=== PATIENT | female | born 1960 | race Caucasian/White ===

== ENCOUNTER 2019-02-09 20:12 | Emergency (ER) | payer BC, OTHER ==
--- NOTE | 2019-02-09 20:30 | ED.PDOC ---
General ED Provider: Dr. SARAH BETH KIM Chief Complaint: Fever Stated Complaint: Patient is a 58 year old female who comes to the Er with fever for the past 5 days. She was taking care of her mother who had pneumonia. She states has cough productive of green sputum with pain with cough. Also complain of diarrhea and vomiting prior to arrival. Time Seen by Physician: 20:30 Mode of Arrival: Walk-In Information Source: Patient Nursing and Triage Documentation Reviewed and Agree: Yes Does patient meet sepsis criteria?: Yes If yes, has appropriate treatment been initiated?: Yes (IV fluids ) System Inflammatory Response Syndrome: Pulse >90 BPM, Resp >20/Minute Sepsis Protocol: For patient's 13 years and over: Temp is 96.8 and below OR 101 and greater Pulse >90 BPM Resp >20/minute Acutely Altered Mental Status Are patient's symptoms suggestive of a new infection, such as: -Pneumonia -Skin, Soft Tissue -Endocarditis -UTI -Bone, Joint Infection -Implantable Device -Acute Abdominal Infection -Wound Infection -Meningitis -Blood Stream Catheter Infection -Unknown Miscellaneous Complaint Exam - Febrile Illness/Adult Complaint/Exam Onset/Duration: 1 week Symptoms Are: Still present Timing: Constant Highest Temperature Recorded: unknown did not have a Thermometer Initial Severity: Mild Current Severity: Moderate Aggravating: Reports: None Associated Signs and Symptoms: Reports: Short of air, Cough Pseudomonas Risk Factors: Reports: None Serious Bacterial Infection Risk Factors: Reports: Ill contact Current Antibiotic Use: No Review of Systems - Review Of Systems Constitutional: Reports: No symptoms Eyes: Reports: No symptoms Ears, Nose, Mouth, Throat: Reports: No symptoms Respiratory: Reports: Cough, Short of air Cardiac: Reports: Chest pain (with cough only ) GI: Reports: No symptoms : Reports: No symptoms Musculoskeletal: Reports: No symptoms Skin: Reports: No symptoms Neurological: Reports: Anxiety Endocrine: Reports: No symptoms Hematologic/Lymphatic: Reports: No symptoms All Other Systems: Reviewed and Negative Past Medical History - Past Medical History Endocrine: Reports: Hypothyroid Cardiovascular: Reports: NM, Hypertension Respiratory: Reports: None Hematological: Reports: None Gastrointestinal: Reports: GERD Genitourinary: Reports: Kidney stones Neuro/Psych: Reports: TIA Musculoskeletal: Reports: None Cancer: Reports: None Last Menstrual Period: UNKNOWN - Surgical History General Surgical History: Reports: , Other (renal stone removal , Eye surgery to correct crossed eyes) - Family History Family History: Reports: Other (pneumonia ) - Social History Smoking Status: Former smoker Hx Substance Use: No Alcohol Screening: Occasionally - Immunizations Tetanus Shot up to Date: (UNKNOWN) Physical Exam - Physical Exam Appearance: Ill-appearing Ill-appearing: Moderate Eyes: MARCIA, EOMI, Conjunctiva clear ENT: Ears normal, Nose normal, Oropharynx normal Respiratory: Airway patent, Rhonchi (mostly on the right ) Cardiovascular: RRR, Pulses normal, No rub, No murmur GI/: Soft, Nontender, No masses, Bowel sounds normal, No Organomegaly Musculoskeletal: Normal strength, ROM intact, No edema, No calf tenderness Skin: Warm, Dry, Normal color Neurological: Sensation intact, Motor intact, Reflexes intact, Cranial nerves intact, Alert, Oriented Psychiatric: Affect appropriate, Mood appropriate Interpretation - Radiology Interpretation Radiology Interpretation By: Radiologist Radiology Results: Positive Exam Interpreted: Portable CXR (Right lower lobe ) - Industrial Hygiene Technician Rate: Tachy Rhythm: Sinus - EKG Interpretation Time of EKG #1: 01:06 Rate: Tachy Rhythm: Sinus Ectopy: None [place]: NL ST Segment: Normal Interpretation: Sinus Tachycardia Re-Evaluation - Re-Evaluation Time of Re-Evaluation: 23:39 Status: Improved Vital Signs Stable: Yes (Temp 100) Appearance: NAD Lungs: Other (Rhonchi on the right base.) Physician Notification - Case Discussed Physician Notified: DR Archibald Time of Notification: 00:35 (patient is too sick for [facility] may need an agency service representative not available here) Physician Notified: DR. PARKER Time of Notification: 00:50 (It seems patient is stable you can can take care of him there. if uncomfortable you may sent them to [facility] but it is possible we will file an EMTALA against your hospital. ) Follow-up With: Dragan called back by RN and he stated that if they can accept the transfer Critical Care Note - Critical Care Note Total Time (mins): 45 Course - Course Hematology/Chemistry: 02/09/19 20:55 02/09/19 20:55 Orders, Labs, Meds: Lab Review 02/09/19 02/09/19 02/09/19 20:50 20:55 20:55 WBC 13.13 H RBC 4.23 Hgb 12.7 Hct 37.8 MCV 89.4 MCH 30.0 MCHC 33.6 RDW Coeff of Josh 12.9 Plt Count 277 Immature Gran % (Auto) 0.4 Neut % (Auto) 77.6 Lymph % (Auto) 11.8 [place] % (Auto) 9.6 Eos % (Auto) 0.1 Baso % (Auto) 0.5 Immature Gran # (Auto) 0.1 Neut # (Auto) 10.2 H Lymph # (Auto) 1.6 [place] # (Auto) 1.3 Eos # (Auto) 0.0 Baso # (Auto) 0.1 PT 10.2 INR 1.02 Puncture Site O2 Saturation ABG pH ABG pCO2 ABG pO2 ABG HCO3 ABG Total CO2 ABG Base Excess [place] Test FiO2 % Sodium Potassium Chloride Carbon Dioxide Anion Gap BUN Creatinine Estimated GFR (MDRD) BUN/Creatinine Ratio Glucose Lactic Acid Calcium Total Bilirubin AST ALT Alkaline Phosphatase Total Creatine Kinase CK-MB (CK-2) CK-MB (CK-2) % Troponin I Total Protein Albumin Globulin Albumin/Globulin Ratio Procalcitonin Urine Color Yellow Urine Clarity Cloudy Urine pH 6.0 Ur Specific [place] 1.025 Urine Protein 2+ Urine Glucose (UA) Negative Urine Ketones Trace Urine Blood 3+ Urine Nitrite Negative Urine Bilirubin 2+ Urine Urobilinogen 4.0 Ur Leukocyte Esterase Trace Urine Microscopic RBC 30-50 Urine Microscopic WBC 2-5 Ur Squamous Epith Cells 2-5 Urine Bacteria Trace 02/09/19 02/09/19 02/09/19 20:55 20:55 20:55 WBC RBC Hgb Hct MCV MCH MCHC RDW Coeff of Josh Plt Count Immature Gran % (Auto) Neut % (Auto) Lymph % (Auto) [place] % (Auto) Eos % (Auto) Baso % (Auto) Immature Gran # (Auto) Neut # (Auto) Lymph # (Auto) [place] # (Auto) Eos # (Auto) Baso # (Auto) PT INR Puncture Site O2 Saturation ABG pH ABG pCO2 ABG pO2 ABG HCO3 ABG Total CO2 ABG Base Excess Seferino Test FiO2 % Sodium 141.2 Potassium 2.83 L Chloride 105.2 Carbon Dioxide 21.8 L Anion Gap 17.03 BUN 10.6 Creatinine 1.06 Estimated GFR (MDRD) 53.00 BUN/Creatinine Ratio 10.00 Glucose 131.0 H Lactic Acid 1.55 Calcium 9.80 Total Bilirubin 0.84 AST 41.5 H ALT 33.0 Alkaline Phosphatase 130.8 Total Creatine Kinase CK-MB (CK-2) CK-MB (CK-2) % Troponin I Total Protein 8.21 H Albumin 4.38 Globulin 3.83 Albumin/Globulin Ratio 1.14 Procalcitonin 0.30 Urine Color Urine Clarity Urine pH Ur Specific [place] Urine Protein Urine Glucose (UA) Urine Ketones Urine Blood Urine Nitrite Urine Bilirubin Urine Urobilinogen Ur Leukocyte Esterase Urine Microscopic RBC Urine Microscopic WBC Ur Squamous Epith Cells Urine Bacteria 02/09/19 02/09/19 20:55 20:55 WBC RBC Hgb Hct MCV MCH MCHC RDW Coeff of Josh Plt Count Immature Gran % (Auto) Neut % (Auto) Lymph % (Auto) [place] % (Auto) Eos % (Auto) Baso % (Auto) Immature Gran # (Auto) Neut # (Auto) Lymph # (Auto) [place] # (Auto) Eos # (Auto) Baso # (Auto) PT INR Puncture Site [place] O2 Saturation 94.0 L ABG pH 7.438 ABG pCO2 24.3 L ABG pO2 67.0 L ABG HCO3 16.4 L ABG Total CO2 17 L ABG Base Excess -8 L S[place]ino Test + FiO2 % 21.0 Sodium Potassium Chloride Carbon Dioxide Anion Gap BUN Creatinine Estimated GFR (MDRD) BUN/Creatinine Ratio Glucose Lactic Acid Calcium Total Bilirubin AST ALT Alkaline Phosphatase Total Creatine Kinase 593.5 H CK-MB (CK-2) 0.911 CK-MB (CK-2) % 0.1500 Troponin I < 0.012 Total Protein Albumin Globulin Albumin/Globulin Ratio Procalcitonin Urine Color Urine Clarity Urine pH Ur Specific [place] Urine Protein Urine Glucose (UA) Urine Ketones Urine Blood Urine Nitrite Urine Bilirubin Urine Urobilinogen Ur Leukocyte Esterase Urine Microscopic RBC Urine Microscopic WBC Ur Squamous Epith Cells Urine Bacteria Orders Category Date Time Status ABG DRAW REQUEST Routine CARDIO 02/09/19 20:56 Completed EKG-(ED ONLY) Stat CARDIO 02/09/19 23:21 Completed NEBULIZER TREATMENT Stat CARDIO 02/09/19 20:56 Completed ED APPLY O2 .ONCE EMERGENCY 02/09/19 20:28 Active ED MID LEVEL NET DEVELOPER APPLIED .ONCE EMERGENCY 02/09/19 20:28 Active ED IV/MEDIPORT/POWERPORT .ONCE EMERGENCY 02/09/19 20:58 Active ED VITAL SIGNS Q1HR EMERGENCY 02/09/19 20:28 Active IV [ED IV/MEDIPORT/POWERPORT] .ONCE EMERGENCY 02/09/19 21:12 Active ABG Stat LAB 02/09/19 20:55 Completed BLOOD CULTURE Stat LAB 02/09/19 21:05 Received CBC W/ AUTO DIFF Stat LAB 02/09/19 20:55 Completed COMPREHENSIVE METABOLIC PANEL Stat LAB 02/09/19 20:55 Completed CPK [CREATINE KINASE] Stat LAB 02/09/19 20:55 Completed LACTIC ACID Stat LAB 02/09/19 20:55 Completed PROCALCITONIN Stat LAB 02/09/19 20:55 Completed PT WITH INR Stat LAB 02/09/19 20:55 Completed TROPONIN I Stat LAB 02/09/19 20:55 Completed URINALYSIS C & S IF INDICATED Stat LAB 02/09/19 20:50 Completed 0.9 % Sodium Chloride [Saline Flush] MEDS 02/09/19 20:58 Ordered 1 syr IVF PRN PRN 0.9 % Sodium Chloride [Saline Flush] MEDS 02/09/19 21:12 Ordered 1 syr IVF PRN PRN Acetaminophen [Tylenol] MEDS 02/09/19 20:58 Discontinued 1,000 mg PO ONCE STA Azithromycin Inj [Zithromax] 500 mg MEDS 02/09/19 21:11 Discontinued 0.9 % Sodium Chloride [Sodium Chloride] 250 ml IV ONCE Benzonatate [Tessalon Perles] MEDS 02/09/19 21:54 Discontinued 100 mg PO ONCE STA Ceftriaxone/D5w 1 gm Premix [Rocephin 1 gm Premix] 1 gm MEDS 02/09/19 21:11 Discontinued Premix 50 ml D5w 1 bag IV ONCE Ceftriaxone/D5w 1 gm Premix [Rocephin 1 gm Premix] 50 MEDS 02/09/19 21:18 Discontinued ml IV .STK-MED Ipratropium/Albuterol Neb [Duoneb] MEDS 02/09/19 20:56 Discontinued 1 vial NEB ONCE STA Potassium Chloride [K-Dur] MEDS 02/09/19 21:55 Discontinued 40 meq PO ONCE STA Ringers Lactated Solution [Lactated Ringers] 3,000 ml MEDS 02/09/19 20:28 Discontinued IV BOLUS CHEST, 1V AP ONLY Stat RADS 02/09/19 20:28 Completed Medications Generic Name Dose Route Start Last Admin Trade Name Freq PRN Reason Stop Dose Admin Sodium Chloride 1 syr 02/09/19 20:58 02/09/19 22:45 Saline Flush IVF 1 syr PRN PRN Administration To flush IV Sodium Chloride 1 syr 02/09/19 21:12 Saline Flush IVF PRN PRN To flush IV Discontinued Medications Generic Name Dose Route Start Last Admin Trade Name Freq PRN Reason Stop Dose Admin Acetaminophen 1,000 mg 02/09/19 20:58 02/09/19 21:05 Tylenol PO 02/09/19 20:59 1,000 mg ONCE STA Administration Albuterol/Ipratropium 1 vial 02/09/19 20:56 02/09/19 21:30 Duoneb NEB 02/09/19 20:57 1 vial ONCE STA Administration Benzonatate 100 mg 02/09/19 21:54 02/09/19 22:40 Tessalon Perles PO 02/09/19 21:55 100 mg ONCE STA Administration Lactated Ringer's 3,000 mls @ 1,000 mls/hr 02/09/19 20:28 02/09/19 21:04 Lactated Ringers IV 02/09/19 23:27 1,000 mls/hr BOLUS STA Administration CEFTRIAXONE/D5W 1 GM PREMIX 1 50 mls @ 75 mls/hr 02/09/19 21:11 02/09/19 21: 20 gm/ Dextrose IV 02/09/19 21:50 75 mls/hr ONCE STA Administration Azithromycin 500 mg/ Sodium 250 mls @ 125 mls/hr 02/09/19 21:11 02/09/19 22: 42 Chloride IV 02/09/19 23:10 125 mls/hr ONCE STA Administration Potassium Chloride 40 meq 02/09/19 21:55 02/09/19 22:41 K-Dur PO 02/09/19 21:56 40 meq ONCE STA Administration Vital Signs: Temp Pulse Resp BP Pulse Ox 02/09/19 23:11 100 F H 107 H 30 H 95 02/09/19 22:30 127/99 H 02/09/19 20:13 104.4 F H 130 H 36 H 164/101 H 90 L Departure - Departure Time of Disposition: 01:00 Disposition: TSF SHORT-TRM HOSP Discharge Problem: Right lower lobe consolidation, Sepsis due to pneumonia, Hypokalemia Condition: Critical Pt referred to PMD for follow-up: Yes IPMP verified?: No Allergies/Adverse Reactions: Allergies No Known Drug Allergies Adverse Reaction (Verified 02/09/19 20:24) Home Medications: Ambulatory Orders Aspirin [Aspirin EC] 81 mg PO DAILY 02/09/19 Multivitamin [Multivitamin Tablet] 1 tab PO DAILY 02/09/19 Paroxetine HCl [Paxil] 10 mg PO DAILY 02/09/19 Simvastatin [Zocor] 20 mg PO DAILY 02/09/19
[2019-02-09 20:37] VITALS: BMI 31.2
[2019-02-09] MEDS ORDERED: DUONEB NEB STA (20:56)
--- NOTE | 2019-02-09 20:57 | DI ---
EXAM: Single view of the chest. History: Cough. Findings: Heart size is normal. Right lower lobe consolidation. No pleural fluid and no pneumothor ax. No acute osseous abnormalities. Impression: Right lower lobe pneumonia. Recommend follow-up chest radiograph to assure resolution.
[2019-02-09] MEDS ORDERED: TYLENOL PO STA (20:58)
[2019-02-09] MEDS ORDERED: LACTATED RINGERS 1,000 ML IV STA ×2 (21:00→22:45)
[2019-02-09] MEDS: LACTATED RINGERS 3,000 ML IV STA (21:04)
[2019-02-09] MEDS ORDERED: ROCEPHIN 1 GM PREMIX 1 GM in PREMIX 50 ML D5W 1 BAG IV STA (21:11)
[2019-02-09] MEDS ORDERED: ZITHROMAX 500 MG in SODIUM CHLORIDE 250 ML IV STA (21:11)
[2019-02-09] MEDS ORDERED: ROCEPHIN 1 GM PREMIX 50 ML IV ONE (21:18)
[2019-02-09] MEDS ORDERED: TESSALON PERLES PO STA (21:54)
[2019-02-09] MEDS ORDERED: K-DUR PO STA (21:55)
[2019-02-09 23:12] VITALS: TEMP 100
[2019-02-09 23:13] VITALS: BP 127/99
[2019-02-10] MEDS ORDERED: LACTATED RINGERS 1,000 ML IV STA (02:00)
[2019-02-10] MEDS: LACTATED RINGERS 3,000 ML IV STA (09:16)
== END 2019-02-10 02:25 | disposition short-term general hospital (02) ==
LOC: ED 20:12
DX: A41.9 Sepsis, unspecified organism (principal); J18.1 Lobar pneumonia, unspecified organism; E87.6 Hypokalemia; R06.02 Shortness of breath; I10 Essential (primary) hypertension; R07.9 Chest pain, unspecified; I25.2 Old myocardial infarction; Z79.899 Other long term (current) drug therapy; E03.9 Hypothyroidism, unspecified; Z86.73 Personal history of transient ischemic attack (TIA), and cerebral infarction without residual deficits; Z87.442 Personal history of urinary calculi
CPT/HCPCS: 36415; 80053; 81001; 82550; 82553; 82803; 83605; 84145; 84484; 85025; 85610; 87040; 93005; 93010; 94640; 96361; 96365; 96366; 96367; 99285